=== PATIENT | female | born 1950 | race Caucasian/White ===

== ENCOUNTER → 2016-09-08 | Outpatient (CLI) | payer OTHER ==
[~2016-09-08] MED LIST: AMLO1CAP5 PO; ESCI10TA PO; MELO-156 PO; ZOLP5TAB5 PO
--- NOTE | 2016-09-08 12:04 | KCIC ---
PROCEDURE Bilateral digital screening mammogram. HISTORY Yhgzf[age]amg[age]-old female presents for screening mammography. TECHNIQUE Full field digital craniocaudal and mediolateral oblique views of both breasts were obtained. Computer-aided detection is applied. COMPARISON 09/03/2015 FINDINGS Breast parenchymal composition: Level B - Scattered fibroglandular densities. There is no new suspicious mass, calcification or architectural distortion within either breast. IMPRESSION BI-RADS Category 2: Benign findings. Annual mammography is recommended. This study was interpreted with the benefit of Computerized Aided Detection (CAD). Mammography is not 100% sensitive in detecting breast cancer. Therefore, a self breast exam and a clinical breast exam are very important. A negative mammogram does not negate a clinically suspicious finding and should not result in a delay in biopsying a clinically suspicious abnormality. The patient information was entered into a reminder system for a target date for the next mammogram in 1 year. Electronically signed by: Karla Gold (September 08, 2016 12:02:32)
--- NOTE | 2016-09-08 14:31 | KCIC ---
INDICATION: Screening. Postmenopausal. COMPARISON: 08/28/2014 TECHNIQUE: Bone mineral density of the lumbar spine and right femur was obtained. FINDINGS: Lumbar Spine BMD (g/cm2): 0.88 T-Score:-1.5 Increased by 4 percent from prior Proximal Femur BMD: 0.72 T-Score:-1.9 Similar to prior IMPRESSION: The patients bone mineral density places them within the following range: Lumbar Spine: Osteopenic Proximal Femur: Osteopenic The patients range is determined according to their T-Score (BMD relative to a young adult at peak bone mass) with the ranges as follows: > -1: Normal Range. Between -1 and -2.5: Osteopenic Range. < -2.5: Osteoporotic Range. Electronically signed by: Krunal Mesa (September 08, 2016 14:29:49)
== END | disposition home or self-care (01) ==
LOC: KCIC MAMMO 11:08
PROVIDERS: ATTEND Obstetrics & Gynecology
DX: Z12.31 Encounter for screening mammogram for malignant neoplasm of breast (principal); Z78.0 Asymptomatic menopausal state
CPT/HCPCS: 77080; G0202; 77067

== ENCOUNTER → 2017-09-10 | Outpatient (CLI) | payer MEDICARE, OTHER | END | disposition home or self-care (01) | LOC: KCIC MAMMO 14:12 | DX: Z12.31 Encounter for screening mammogram for malignant neoplasm of breast (principal) | CPT/HCPCS: 77063; 77067 ==

== ENCOUNTER → 2017-09-17 | Outpatient (CLI) | payer MEDICARE, OTHER | END | disposition home or self-care (01) | LOC: KCIC 14:46 | DX: M16.11 Unilateral primary osteoarthritis, right hip (principal); M48.02 Spinal stenosis, cervical region; M17.0 Bilateral primary osteoarthritis of knee; G89.29 Other chronic pain | CPT/HCPCS: 72050; 73502; 73562 ==

== ENCOUNTER → 2018-09-13 | Outpatient (CLI) | payer MEDICARE, OTHER ==
[~2018-09-13] MED LIST changes: -ESCI10TA PO; +ESCITALOPRAM OX10 MG PO; -MELO-156 PO; +MELO7.5T29 PO
--- NOTE | 2018-09-13 12:26 | KCIC ---
History: Screening Bilateral digital CC and MLO views were obtained with mammography and tomosynthesis. Computer aided detection was utilized with iCAD Second Look 7.2-H. Previous: September 10, 2017 and priors. There are scattered fibroglandular densities (Level 2 density).There are no suspicious masses, suspicious microcalcifications or areas of architectural distortion. IMPRESSION: Negative mammogram. Patient information was entered into the reminder system with a target due date for the next screening mammogram. Routine annual screening mammogram in one year advised. BI-RADS Category 1: Negative. If your mammogram demonstrates that you have dense breast tissue, which could hide abnormalities, and if you have other risk factors for breast cancer that have been identified, you might benefit from supplemental screening tests that may be suggested by your ordering physician. Dense breast tissue, in and of itself, is a relatively common condition. This information is not provided to cause undue concern, but rather to raise your awareness and to promote discussion with your physician regarding the presence of other risk factors, in addition to dense breast tissue. A report of your mammography results will be sent to you and your physician. You should contact your physician if you have any questions or concerns regarding this report. A mammogram does not have 100% sensitivity and therefore a negative imaging study should not delay further work up of a suspicious abnormality. "Our facility is accredited by the [employer] Mammography Program." Electronically signed by: Alfie Gandara MD (09/13/2018 12:23 PM) [facility]
== END | disposition home or self-care (01) ==
LOC: KCIC MAMMO 10:52
PROVIDERS: ATTEND Obstetrics & Gynecology
DX: Z12.31 Encounter for screening mammogram for malignant neoplasm of breast (principal)
CPT/HCPCS: 77063; 77067

== ENCOUNTER 2019-03-26 13:26 | Emergency (ER) | payer MEDICARE ==
[~2019-03-26] VITALS: Ht 154.9 cm; Wt 73.5 kg
[2019-03-26 13:48] VITALS: BP 168/71
--- NOTE | 2019-03-26 15:11 | PHYS DOC ---
Past Medical History Past Medical History: Hypertension Past Surgical History: Lumbar Laminectomy Additional Past Surgical Histo: BLADDER SLING,CATARACTS, Alcohol Use: None Drug Use: None Adult General Chief Complaint Chief Complaint: WRIST PAIN HPI HPI Patient is a 69 year old female who presents with states that today in [facility] she was going door to door knocking on doors. Patient states at 11:00 today she was going door to door and she lost her balance and started to fall. Patient states she caught herself with her right wrist. Patient now has pain and swelling to the right wrist at the radial side. Patient states her pain is a 2 out of 10 when she is just sitting there when she moves the wrist is a 5 out of 10. Review of Systems Review of Systems Musculoskeletal: Denies back pain. Right wrist joint pain [] All other systems were reviewed and found to be within normal limits, except as documented in this note. Allergies Allergies Allergies Coded Allergies Type Severity Reaction Last Updated Verified Penicillins Allergy Unknown 10/10/13 No phenytoin Allergy Unknown 10/10/13 No Physical Exam Physical Exam Constitutional: Well developed, well nourished, no acute distress, non-toxic appearance. [] Skin: Warm, dry, no erythema, no rash. [] Extremities: Right anterior and posterior tenderness, no cyanosis, no clubbing, ROM intact, Radial 2+ edema. [] Neurologic: Alert and oriented X 3, normal motor function, normal sensory function, no focal deficits noted. [] Psychologic: Affect normal, judgement normal, mood normal. [] Current Patient Data Vital Signs Vital Signs Date Time Temp Pulse Resp B/P (MAP) Pulse Ox O2 Delivery O2 Flow Rate FiO2 03/26/19 13:48 97.6 68 18 168/71 (103) 98 Room Air 97.6 EKG EKG [] Radiology/Procedures Radiology/Procedures [] Impressions: [facility] [address] [place], [place] [id number] IMAGING REPORT Signed PATIENT: JANETTE CERRATO LACCOUNT: [id number] : 1950 LOCATION: ER AGE: 69 SEX: F EXAM STATUS: REG ER ORD. PHYSICIAN: BAFUS,CANDE M GARMENT CUTTER REASON: fall. right wrist pain. radial side PROCEDURE: WRIST 3V RIGHT Study: WRIST 3V RIGHT Indication: Fall with wrist pain. Comparison: None. Findings: Nondisplaced distal radial metaphyseal fracture with dorsal cortical buckling as seen on the lateral view. There may be intra-articular extension along the ulnar aspect of the radial articular surface as noted on the oblique view. No gross malalignment at the distal radioulnar joint. Alignment across the radiocarpal joint is neutral. [facility] more so than triscaphe arthrosis. Osteopenia. Impression: Nondisplaced distal radial metaphyseal fracture. This is well seen is dorsal cortical buckling on the lateral view. There could be intra-articular extension along the ulnar margin of the radial articular surface. Attention on follow-up imaging. Electronically signed by: RED RIZVI MD (03/26/2019 3:06 PM) [facility] DICTATED and SIGNED BY: RED RIZVI MD DATE: 03/26/19 1506 Course & Med Decision Making Course & Med Decision Making She does 2+ swelling to the radial side of the right wrist. There is pain to the radial side of the posterior old redness. Radial pulses are present. Cap refill less than 3 seconds. Skin pink warm and dry. Patient does have range of motion in the right wrist but is painful. Patient can make a fist. Patient denies any numbness or tingling. Xray shows Nondisplaced distal radial metaphyseal fracture. This is well seen is dorsal cortical buckling on the lateral view. There could be intra-articular extension along the ulnar margin of the radial articular surface. Attention on follow-up imaging. Patient placed in Sugar tong splint by RN. Splint Assessment: Neurovascularly intact post splint placement with good fit. Dragon Disclaimer Dragon Disclaimer This electronic medical record was generated, in whole or in part, using a voice recognition dictation system. Departure Departure Impression: Primary Impression: Distal radial fracture Disposition: 01 HOME, SELF-CARE Condition: STABLE Referrals: GINNY POWELL MD (PCP) JAIDA IBRAHIM MD Patient Instructions: Radial Fracture Additional Instructions: Follow up with orthopedics as soon as possible for follow up. Scripts Hydrocodone/Apap 5-325 (NORCO 5-325 TABLET) 1 Each Tablet 1 TAB PO PRN Q6HRS PRN for PAIN, #10 TAB 0 Refills Prov: CANDE BRAY APRN 03/26/19 Problem Qualifiers Primary Impression: Distal radial fracture Encounter type: initial encounter Fracture type: closed Fracture morphology: other fracture Laterality: right Qualified Codes: S52.591A - Other fractures of lower end of right radius, initial encounter for closed fracture CANDE BRAY APRN Mar 26, 2019 15:11
[2019-03-26] MEDS ORDERED: HYDR-3164 PO (15:22)
== END 2019-03-26 16:04 | disposition home or self-care (01) ==
LOC: ER 13:26
DX: S52.591A Other fractures of lower end of right radius, initial encounter for closed fracture (principal); I10 Essential (primary) hypertension; Z88.0 Allergy status to penicillin; Z88.8 Allergy status to other drugs, medicaments and biological substances; W18.39XA Other fall on same level, initial encounter; Y93.89 Activity, other specified; Y92.89 Other specified places as the place of occurrence of the external cause; Y99.8 Other external cause status
CPT/HCPCS: 29125; 73110; 99284

== ENCOUNTER → 2019-08-08 | Outpatient (CLI) | payer MEDICARE ==
[~2019-08-08] MED LIST changes: +BENA40TA3 PO; +CALC500T54 PO; +CELE200C PO; +CHOL3000 PO; +FLAX10003 PO; +GABA300C18 PO; +HYDR-3164 PO; +LATA2.5D3 EACHEYE; +MULT-245 PO; +NIAC500T PO
--- NOTE | 2019-08-08 12:04 | PAIN ---
DATE OF SERVICE: 08/08/2019 INITIAL CONSULTATION FOR PAIN CLINIC CHIEF COMPLAINT: Right hip and lower extremity pain. HISTORY OF PRESENT ILLNESS: The patient is a 69-year-old female who presents with history of pain for months to years in the right hip and low back as well as in the right leg. The patient had seen her orthopedic surgeon recently showing significant advanced degenerative changes in the right hip joint with femoral head subchondral sclerosis on x-rays and potential history of avascular necrosis. The patient has significant pain in the right hip with walking, standing, especially climbing upstairs, putting all her weight on her right leg with pain radiating to the right groin and medial thigh as well as the anterior thigh and into the posterior gluteus as well. The patient reports the pain and numbness in the left leg occasionally, but the right hip is the main complaint. The patient reports it is constant, sharp, changes during the day, worse with walking, standing, changing positions, even just sitting down from a standing position and vice versa can exacerbate the pain. The patient reports it awakens her from sleep at least 2-3 times a night, does not affect her bowel or bladder control, but does affect her ability to walk. She has a cane that she has with her occasionally, but she does not have it with her today. The patient is taking gabapentin as well as Celebrex, which both do decrease the pain, but only minimally. The patient had had chiropractic treatment in the past and doing exercise currently and was using [employer] until recent temporary closure. The patient reports no loss of motor function, but again significant fatigability with right leg secondary to the pain. The patient rates her disability rating from 0-10, 10 being the worst, is a 3 with family home responsibilities and occupation, 7 with recreational activities, 8 with sexual behavior, 2 with social activity and self-care, and 0 with life support activities. PAST MEDICAL HISTORY: Significant for hypertension, glaucoma, seizures in 1970s, arthritis, balance issues. PREVIOUS SURGERY: Include lumbar diskectomy about 10 plus years ago, bilateral cataract extractions, bladder sling procedure, hemorrhoidectomy. CURRENT MEDICATIONS: Include amlodipine, benazepril, escitalopram, Celebrex, zolpidem, gabapentin, and lansoprazole. ALLERGIES: THE PATIENT IS ALLERGIC TO DILANTIN AND PENICILLIN. FAMILY HISTORY: Significant for cancer and heart disease, also arthritis. SOCIAL HISTORY: The patient does not drink alcohol, does not smoke. Denies any illegal, illicit or recreational drugs. Lives locally in [place], [place]. She is , lives with her spouse and is currently retired from a dental front office position. REVIEW OF SYSTEMS: The patient's review of systems is positive for those items mentioned in history of present illness. All systems reviewed and otherwise negative. It is complete, full and well documented on the patient's chart. PHYSICAL EXAMINATION: VITAL SIGNS: The patient's blood pressure 140/74, pulse 63, respirations 16, temperature 98.1 degrees Fahrenheit, height is 5 feet 1 inch, weight is 165 pounds. GENERAL: The patient is awake, alert, oriented, appropriate, very pleasant demeanor. HEENT: Shows normocephalic, atraumatic. Extraocular movements are intact and symmetrical. Oral cavity: Mucous membranes moist and pink. Dentition is intact. NECK: Shows anterior throat supple without palpable lymphadenopathy noted. Swallow reflex symmetrical. CHEST: Shows normal on inspection. Breath sounds are clear bilaterally. HEART: Shows S1, S2 clear. No murmurs auscultated. ABDOMEN: Soft, nontender, nondistended. No palpable organomegaly is noted. No rebound or guarding demonstrated. BACK: Shows spine grossly in the midline. Normal appearing thoracic kyphosis and minor flattening of lumbar lordotic curvature with well-healed surgical scar noted in the lumbar distribution. Lumbar paraspinous muscle shows symmetrical on inspection, with palpation shows some moderate tenderness diffusely with rotation bilaterally, but not with extension or flexion. EXTREMITIES: The patient's lower extremities show deep tendon reflexes at 2+ in the patellar, 1+ tendo-calcaneus tendons. Motor exam is strong with 5/5 dorsiflexion, extension, quadriceps and hamstring flexion. Peripheral pulses are 1+ posterior tibia. No peripheral edema is noted. Lower extremities are warm and dry to touch, equal in color and appearance. The patient does have positive Sha's maneuver with external rotation of the right hip and lateral displacement, left side is negative. The patient is able to stand, stand on toes without significant difficulty or loss of balance. She does use the both arms of the chair to get up from a seated position secondary to pain in her right leg and puts her weight on her left leg initially when standing. Again, the patient was not using a cane today, but reports she does use this occasionally. SKIN: Shows warm and dry, good turgor. No edema. No sores, rashes or bruising throughout. IMPRESSION: 1. This is a 69-year-old female with long history of right hip and lower extremity pain, worse with ambulation and weightbearing. 2. Plain films right hip as noted. 3. Hypertension. 4. Arthritis. PLAN: Options were discussed with the patient including conservative medical managements, continued physical therapies, interventional techniques and she would like to pursue interventional techniques. She would like to discuss with her prior to making an appointment to have the procedure of intra-articular hip joint injection. We discussed using anatomical models to describe the procedure as well. The patient will make appointment once she will discuss this with her and she would like to proceed and he is not with her today and we will schedule time to proceed with a right intra-articular hip joint injection in the near future. Meantime, the patient will continue with stretching and strengthening exercises, activity as tolerated. We will follow up as scheduled. RUBEN LOJA MD DR: ORI/beena JOB#: [id number] / [id number] GINNY Acharya MD
== END | disposition home or self-care (01) ==
LOC: PNCL 09:59
PROVIDERS: ATTEND Anesthesiology
DX: M16.11 Unilateral primary osteoarthritis, right hip (principal); M25.551 Pain in right hip; M79.661 Pain in right lower leg; I10 Essential (primary) hypertension
CPT/HCPCS: G0463

== ENCOUNTER → 2019-08-29 | Outpatient (CLI) | payer MEDICARE ==
[~2019-08-29] MED LIST changes: +BUPIVACAINE MPF 0.25% 10 ML VIAL. ONE; +IOHEXOL 180 MG/ML 10 ML VIAL. ONE; +methylPREDNISolone ACETATE 80 MG/ML VIAL. ONE
--- NOTE | 2019-08-29 10:16 | PAIN ---
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 HISTORY OF PRESENT ILLNESS: The patient is a 69-year-old female who returns for followup status post initial evaluation and the patient returns wishing for procedure today as we discussed previously. She was able to discuss this with her and would like to proceed with a right intra-articular hip joint injection. The patient reports still significant pain in right hip and groin, made worse over the past 2 days, she fell and landed on her tailbone, which is having some pain as well, but did exacerbate the pain in the hip also. The patient reports it is worse with walking, standing, changing positions, putting all her weight on her right leg, especially with climbing stairs or stepping up on a curb or a ladder. The patient reports it is 9 on a scale of 10 at its worst over the past week, 5 on average, 3 at its least and is a 5 today. The patient reports it is aching and sharp, radiating to the groin on the right side as well as into the medial thigh with weightbearing, better with sitting or lying down, generally does not awaken her from sleep at night. The patient reports no new motor or sensory deficits, no new bowel or bladder incontinence or other complaints. PHYSICAL EXAMINATION: VITAL SIGNS: The patient's blood pressure is 118/71, pulse 77, respirations are 18, temperature 97.4 degrees Fahrenheit, height is 5 feet 1 inch, weight is 164 pounds. GENERAL: The patient is awake, alert, oriented, appropriate, very pleasant demeanor. HEENT: Head shows normocephalic, atraumatic. Extraocular movements are intact and symmetrical. Oral cavity: Mucous membranes moist and pink. Dentition is intact. NECK: Shows anterior throat supple without palpable lymphadenopathy noted. Swallow reflex symmetrical. CHEST: Shows normal on inspection. Breath sounds are clear bilaterally. HEART: Shows S1, S2 clear. No murmurs auscultated. ABDOMEN: Soft, nontender, nondistended. No palpable organomegaly is noted. No rebound or guarding demonstrated. BACK: Shows spine grossly in the midline. Normal appearing thoracic kyphosis and minor flattening of lumbar lordotic curvature. Lumbar paraspinous muscle shows symmetrical on inspection, with palpation shows some very mild tenderness diffusely bilaterally, but only mildly. The patient shows some mild tenderness with palpation over the sacrum as well, but no bruising or abnormalities noted. EXTREMITIES: The patient's lower extremities show deep tendon reflexes 2+ in the patellar, 1+ tendo-calcaneus tendons. Motor exam is strong with 5/5 dorsiflexion, extension, quadriceps and hamstring flexion symmetrical. Peripheral pulses are 1+ posterior tibia. No peripheral edema is noted. The patient does appear to still have a positive Sha's sign with external rotation of the right hip and posterior displacement with significant pain in the groin itself, left side is negative. Options were discussed with the patient. The patient's old chart was reviewed as her current medication regimen updated. Current review of systems updated today as well and we will proceed with a right intra-articular hip joint injection today with fluoroscopic guidance. Risks were again discussed including, but not limited to bleeding, infection, possibility of intravascular injection sequelae, spread of local anesthetic and numbness, side effects of steroid medication, exposure to fluoroscopy and poor results regarding pain control. The patient understands and wished to proceed. The patient will return to clinic in approximately 2 weeks for followup. She was counseled on return appointment, activity level and side effects to be aware of. 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 PROCEDURE: Right intra-articular hip joint injection using C-arm fluoroscopic guidance under sterile prep and drape using local anesthetic. MEDICATION INJECTED: A total of 3 mL of 0.25% bupivacaine, 80 mg Depo-Medrol and 2 mL of contrast. CONDITION AT DISCHARGE: Stable. The patient tolerated procedure well, had no complications. RUBEN LOJA MD DR: ORI/beena JOB#: [id number] / [id number]
== END ==
LOC: PNCL 09:02
PROVIDERS: ATTEND Anesthesiology
DX: M16.11 Unilateral primary osteoarthritis, right hip (principal)
CPT/HCPCS: 20610; 77002; J1040; J3490; Q9965

== ENCOUNTER → 2019-10-24 | Outpatient (CLI) | payer MEDICARE ==
[~2019-10-24] MED LIST changes: -BUPIVACAINE MPF 0.25% 10 ML VIAL. ONE; -IOHEXOL 180 MG/ML 10 ML VIAL. ONE; -methylPREDNISolone ACETATE 80 MG/ML VIAL. ONE
--- NOTE | 2019-10-24 12:36 | KCIC ---
Bone mineral density exam History: Postmenopausal, loss of height, osteopenia, steroid use Comparison: 09/08/2016 Findings: Bone mineral density examination utilizing DEXA was performed. Left hip bone mineral density of 0.652 g/cm2 corresponds with a T score -2.4, Z score -0.9. There has been -8.9% decrease. The bone mineral density of the lumbar spine was 0.788 g/cm2 which corresponds with a T-score of -2.4, Z score -0.3. There has been -10.8% decrease. By [employer] on Osteoporosis criteria, a T score of 0 to-1 SD is considered to be within normal limits. A T score of -1 to -2.5 SD is considered osteopenia. A T score less than -2.5 SD is considered osteoporosis Impression: 1. There is osteopenia of the left hip and the lumbar spine. Electronically signed by: Alan Hummel MD (10/24/2019 12:33 PM) [id number]
--- NOTE | 2019-10-24 16:21 | KCIC ---
Bilateral digital screening mammograms with 3-D tomosynthesis: Reason for examination: Routine screening. Comparison is made to previous studies dated back to 09/08/2016. Bilateral mammograms in CC and oblique projections were obtained with 2-D imaging and 3-D tomosynthesis imaging on a Siemens Inspiration unit and reviewed on the workstation. Interpretation was made with the benefit of CAD. The skin and nipples show no abnormalities. No abnormal axillary lymph nodes are seen. The breast parenchyma shows scattered fatty and fibroglandular density. (Breast density: Category B.) There continues to be a small circumscribed nodule anterior laterally in the right breast which appears to be stable and likely represents a fibroadenoma. There are no new dominant masses, suspicious calcifications or architectural distortion. Impression: No evidence of malignancy. Recommend routine screening. BI-RAD Category 2: Benign. "Our facility is accredited by the [employer] Mammography Program." This patient's information has been entered into a reminder system for the patient to be notified with the results of her examination and a target date for the next mammogram. Electronically signed by: Ayde Pope MD (10/24/2019 4:18 PM) [id number]
== END | disposition home or self-care (01) ==
LOC: KCIC DEXA 10:37
PROVIDERS: ATTEND Obstetrics & Gynecology
DX: Z12.31 Encounter for screening mammogram for malignant neoplasm of breast (principal); N95.1 Menopausal and female climacteric states; M85.88 Other specified disorders of bone density and structure, other site
CPT/HCPCS: 77063; 77067; 77080